=== PATIENT | male | born 1955 | race Asian ===

== ENCOUNTER 2020-03-21 19:10 | Observation (INO) ==
--- NOTE | 2020-03-21 20:44 | XRay Report ---
XR chest 1V portable HISTORY: Atypical Chest Pain COMPARISON: None. FINDINGS: The lungs are clear. Cardiac silhouette is normal in size. No pleural effusions. No pneumot horax. IMPRESSION: No acute process. ACT 112: Negative or not required by law. Electronically signed by: Hayden Marcum M.D. 03/21/2020 8:42 PM
[2020-03-21 20:53] LABS: Basophils # (auto) 0.02 K/uL (0-0.2); Basophils % (auto) 0.2 %; Eosinophils # (auto) 0.22 K/uL (0-0.5); Eosinophils % (auto) 2.7 %; Hematocrit (blood only) 43.1 % (42-52); Hemoglobin 14.7 g/dL (14.0-18.0); Immature Granulocytes # (auto) 0.02 K/uL (0.00-0.02); Immature Granulocytes % (auto) 0.2 %; Lymphocytes # (auto) 1.76 K/uL (1.2-3.4); Lymphocytes % (auto) 21.7 %; Mean Corpuscular Hemoglobin 32.2 pg (25-34); Mean Corpuscular Hgb Conc 34.1 g/dL (32-36); Mean Corpuscular Volume 94.5 fL (80-100); Mean Platelet Volume 10.7 fL (7.4-10.4); Monocytes # (auto) 0.51 K/uL (0.11-0.59); Monocytes % (auto) 6.3 %; Neutrophils # (auto) 5.59 K/uL (1.4-6.5); Neutrophils % (auto) 68.9 %; Platelet Count 183 K/uL (130-400); RDW Coefficient of Variation 12.7 % (11.5-14.5); RDW Standard Deviation 43.8 fL (36.4-46.3); Red Blood Count 4.56 M/uL (4.7-6.1); White Blood Count 8.12 K/uL (4.8-10.8)
[2020-03-21 21:03] LABS: Partial Thromboplastin Ratio 0.8; Partial Thromboplastin Time 21.7 Seconds (21.0-31.0); Prothrombin Time 10.9 Seconds (9.0-12.0)
--- NOTE | 2020-03-21 21:14 | Emergency Department Note ---
History of Present Illness General Chief complaint: Chest Pain Time Seen by Provider: 03/21/20 20:14 Source: patient, RN notes reviewed and old records reviewed Mode of arrival: ambulatory Limitations: language barrier History of Present Illness Provider complaint: Chest pain Onset (ago): hour(s) 2 Location: chest Radiation: back Severity: severe Pain Consistency: + now resolved Current Pain Intensity: 0 Quality: + stabbing Relieved By: + immobilization Exacerbated By: + movement Associated symptoms: + diaphoresis, + nausea/vomiting and + shortness of breath; no denies other symptoms, no cough, no fever/chills, no headaches, no seizure and no weakness Treatments prior to arrival: none This is a 64-year-old male who has a history of diabetes that presents the emergency department complaining of severe chest pain. The patient does not speak Belgian and I did offer citizenship teacher services however he would like to use his daughter as citizenship teacher. He reports he was out exercising today when he developed severe chest pain. The patient reports he usually walks slashes runs during the afternoon. The chest pain he described as a stabbing sensation that radiated into his back and neck. He became diaphoretic as well as short of br eath while this was going on. He stopped his exercise routine and eventually the chest pain went away. He was then brought to the emergency department by his daughter. The patient denies any other issues. 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 Beliefs That Will Affect Care: None marital status: Current Living Situation: Family Feels Safe at Home: Yes Smoking Status: Never smoker Tobacco Type: cigarettes ; Second Hand Exposure: Yes ; Hx Alcohol Use: Yes Alcohol type: beer Hx Substance Use: Yes substance use type: does not use Last Used Substance: Just Prior to Arrival Review of Systems A total of 10 systems reviewed and were otherwise negative Physical Exam Vital Signs Vital Signs - 24 hr 03/21/20 19:18 03/21/20 19:32 03/21/20 19:36 Temperature 36.7 C Temperature Source Oral Pulse Rate 51 L 52 L 52 L Pulse Rate from SpO2 Sensor 52 L Respiratory Rate 16 18 20 Blood Pressure 167/88 H 162/94 H 162/94 H Blood Pressure Mean 104 113 116 Pulse Oximetry 98 96 Oxygen Delivery Method Room Air Room Air Sepsis Recent Fever Within 48 Hours No Sepsis Action Taken by Nursing No Action Required 03/21/20 19:44 03/21/20 21:04 03/21/20 21:30 Temperature Temperature Source Pulse Rate 46 L 47 L Pulse Rate from SpO2 Sensor 45 L 48 L Respiratory Rate 17 16 Blood Pressure 157/91 H 143/95 H Blood Pressure Mean 129 112 Pulse Oximetry 98 99 Oxygen Delivery Method Room Air Room Air Room Air Sepsis Recent Fever Within 48 Hours Sepsis Action Taken by Nursing VITAL SIGNS - Vital signs and nursing notes were reviewed. GENERAL - 54-year-old male appearing stated age who is in no acute distress. Communicates well with provider and answers questions appropriately. SKIN - Without rashes. HEAD - NC/AT. EYES - PERRL with EOMI bilaterally. Sclera anicteric. Palpebral conjunctiva pink and moist with no injection noted. EARS - No deformities of external structures noted on gross examination bilaterally. No pain elicited with palpation of the tragus bilaterally. External auditory canals without discharge or otorrhea. Tympanic membranes pearly keith without retraction or bulging. No fluid or purulent material visualized behind the TM. Handle of malleus, umbo, cone of light, pars tensa/flaccid all easily visualized. NOSE - Midline and without cyanosis. No epistaxis or purulent drainage noted. Septum midline without deviation or septal hematoma noted. MOUTH/OROPHARYNX - Without perioral cyanosis. Buccal mucosa pink and moist and without leukoplakia. Tongue midline with equal elevation of palate bilaterally. No tonsillar hypertrophy, erythema, or exudates noted. dentition noted. NECK - Neck with FROM. Supple to palpation. lymphadenopathy noted. No nuchal rigidity. LUNGS - Chest wall symmetric without accessory muscle use, intercostals retractions, or central cyanosis. Normal vesicular breath sounds CTA B/L. No wheezes, rales, or rhonchi appreciated. CARDIAC - RRR with S1/S2. No murmur, rubs, or gallops appreciated. ABDOMEN - Abdominal contour without pulsations or visible masses. BS normoactive all four quadrants. No tenderness, palpable masses, hepatosplenomegaly, or ascites noted. EXTREMITIES - No clubbing or peripheral cyanosis. No pretibial edema present. +3/5 radial, posterior tibial, and dorsalis pedis pulses palpated throughout. +5/5 strength noted in UE/LE bilaterally. NEUROLOGIC - Cranial nerves II through XII grossly intact. Sensory intact to light touch throughout. Patellar reflexes +2/4. PSYCH - A&Ox3 and cooperates fully with examiner. Pt is very pleasant and interacts well with examiner. Course Administered Medications Discontinued Medications Aspirin (Aspirin Chew) 324 mg PO NOW STA Stop: 03/22/20 02:20 Last Admin: 03/22/20 02:24 Dose: 324 mg Documented by: [id number] Aspirin (Ecotrin Ectab) 81 mg PO QAM BLAYNE Stop: 04/21/20 08:59 Last Admin: 03/22/20 08:23 Dose: 81 mg Documented by: [id number] Chlorhexidine Gluconate (Peridex) 15 ml MT ONCE ONE Stop: 03/22/20 02:07 Last Admin: 03/22/20 02:43 Dose: 15 ml Documented by: [id number] Heparin Sodium (Porcine) (Heparin Sodium (Porcine)) 5,000 units SQ Q12 BLAYNE Stop: 04/21/20 08:59 Last Admin: 03/22/20 08:24 Dose: 5,000 units Documented by: [id number] Cosigned by: [id number] Nitroglycerin (Guido-Dur 0.2mg/Hr) 1 patch TD NOW STA Stop: 03/22/20 02:07 Last Admin: 03/22/20 02:41 Dose: 1 patch Documented by: [id number] Medical Decision Making Differential Diagnosis Cardiac ischemia, aortic dissection, pulmonary embolism, pneumothorax, pneumonia, pericarditis, myocarditis, esophageal rupture, GERD, cholecystitis, pancreatitis, musculoskeletal, as well as other pathologies. Medical Records Attestation: I reviewed the patient's medical records. Home Medications Current Medication List: was personally reviewed by me Laboratory Data Attestation: I reviewed the patient's lab results. Result diagrams: 03/21/20 20:40 03/22/20 09:33 Lab Results 06/03/21/20 03/21/20 Range/Units 20:40 20:40 20:40 WBC 8.12 (4.8-10.8) K/uL RBC 4.56 L (4.7-6.1) M/uL Hgb 14.7 (14.0-18.0) g/dL Hct 43.1 (42-52) % MCV 94.5 (80-100) fL MCH 32.2 (25-34) pg MCHC 34.1 (32-36) g/dL RDW Std Deviation 43.8 (36.4-46.3) fL RDW Coeff of Casie 12.7 (11.5-14.5) % Plt Count 183 (130-400) K/uL MPV 10.7 H (7.4-10.4) fL Immature Gran % (Auto) 0.2 % Neut % (Auto) 68.9 % Lymph % (Auto) 21.7 % Frontier % (Auto) 6.3 % Eos % (Auto) 2.7 % Baso % (Auto) 0.2 % Neut # (Auto) 5.59 (1.4-6.5) K/uL Lymph # (Auto) 1.76 (1.2-3.4) K/uL Frontier # (Auto) 0.51 (0.11-0.59) K/uL Eos # (Auto) 0.22 (0-0.5) K/uL Baso # (Auto) 0.02 (0-0.2) K/uL Immature Gran # (Auto) 0.02 (0.00-0.02) K/uL PT 10.9 (9.0-12.0) Seconds INR 1.0 (0.9-1.1) APTT 21.7 (21.0-31.0) Seconds PTT Ratio 0.8 Sodium 138 (136-145) mmol/L Potassium 4.2 (3.5-5.1) mmol/L Chloride 107 (98-107) mmol/L Carbon Dioxide 26 (21-32) mmol/L Anion Gap 5.0 (3-11) BUN 14 (7-18) mg/dl Creatinine 1.01 (0.6-1.4) mg/dl Est Cr Clr Drug Dosing Not Reportable Est GFR ( Amer) 92.0 Est GFR (Non-Af Amer) 79.3 BUN/Creatinine Ratio 14.3 (10-20) Glucose 123 H (70-99) mg/dl Calcium 8.9 (8.5-10.1) mg/dl Total Bilirubin 0.5 (0.2-1) mg/dl AST 11 L (15-37) U/L ALT 28 (12-78) U/L Alkaline Phosphatase 85 (45-117) U/L Total Creatine Kinase 60 (39-308) U/L CK-MB (CK-2) < 1.0 (0.5-3.6) ng/ml CK/CKMB % Calc TNP Troponin I < 0.015 (0-0.045) ng/ml Total Protein 7.8 (6.4-8.2) gm/dl Albumin 3.9 (3.4-5.0) gm/dl Globulin 3.9 (2.5-4.0) gm/dl Albumin/Globulin Ratio 1.0 (0.9-2) Imaging Data Radiologist's Impression: [facility], [place] [phone] XRay Report Patient: RAYA BEST Admit Date: 03/21/20 MR#: [id number] Address1: Acct ID:[id number] Address2: Date: 1955 [facility] Zip: Age: 64 Location: ED Sex: M Room/Bed: Att Phy: Diagnosis: CHEST PAINS Tracy Phy: PCP,NO Service Date: 03/21/20 [facility] Phy: Interpreting Phy: Hayden Marcum MD Admit Phy: Ordering Phy: Bhaskar Moss MD cc: ~ XR chest 1V portable HISTORY: Atypical Chest Pain COMPARISON: None. FINDINGS: The lungs are clear. Cardiac silhouette is normal in size. No pleural effusions. No pneumothorax. IMPRESSION: No acute process. ACT 112: Negative or not required by law. Electronically signed by: Hayden Marcum M.D. 03/21/2020 8:42 PM Dictated: 03/21/202040 Transcribed: 03/21/202040 ECG Data Attestation: I personally reviewed and interpreted this ECG as follows: Indication: chest pain Rate (beats per minute): 54 Rhythm: sinus bradycardia Findings: no ST depression and no ST elevation Comparison ECG Date: no prior available MDM Narrative This is a 64-year-old male who presents emergency department complaining of severe chest pain while he was exercising today. Due to this I did discuss case with the hospitalist service. He does not have an elevation in his troponin has a normal EKG. I did discuss the case with the hospitalist service who did agree to admit the patient. Patient was seen and evaluated as above in room B10. Review was performed of nursing notes and vital signs. I did review pertinent previous visits and patient history. After obtaining a thorough history and physical examination the above work up was performed. B6 An order was placed for continuous cardiac monitoring. The monitor shows a rate of 47 with Normal Sinus rhythm. The patient was evaluated during the global COVID-19 pandemic, and that diagnosis was suspected/considered upon their initial presentation. Their evaluation, treatment and testing was consistent with current guidelines for patients who present with complaints or symptoms that may be related to COVID- 19. Impression & Plan Chest pain, DMII (diabetes mellitus, type 2) Discharge Plan Visit Data *Final* Discharge Date/Time: 03/22/20 00:04 Chief Complaint: Chest Pain ED Provider: Bhaskar Moss Discharge Problem: Chest pain, DMII (diabetes mellitus, type 2) Patient Disposition: Admitted As Inpatient Discharge Instructions Interventions: ED Discharge Assessment Last Done: 03/22/20 00:04 Discharge Problem: Chest pain Qualifiers: Chest pain type: unspecified Qualified Code(s): R07.9 - Chest pain, unspecified DMII (diabetes mellitus, type 2) Qualifiers: Diabetes mellitus custodial insulin use: unspecified custodial insulin use status Diabetes mellitus complication status: without complication Qualified Code(s): E11.9 - Type 2 diabetes mellitus without complications
[2020-03-21 21:20] LABS: Alanine Aminotransferase 28 U/L (12-78); Albumin Level 3.9 gm/dl (3.4-5.0); Aspartate Aminotransferase 11 U/L (15-37); BUN Creatinine Ratio 14.3 (10-20); Blood Urea Nitrogen 14 mg/dl (7-18); Calcium 8.9 mg/dl (8.5-10.1); Carbon Dioxide 26 mmol/L (21-32); Chloride 107 mmol/L (98-107); Est GFR (Non-African American) 79.3; Glucose 123 mg/dl (70-99); Potassium 4.2 mmol/L (3.5-5.1); Sodium 138 mmol/L (136-145)
[2020-03-21 21:25] LABS: Alkaline Phosphatase 85 U/L (45-117); Bilirubin,Total 0.5 mg/dl (0.2-1); Creatine Kinase 60 U/L (39-308); Creatine Kinase MB < 1.0 ng/ml (0.5-3.6); Globulin 3.9 gm/dl (2.5-4.0); Total Protein 7.8 gm/dl (6.4-8.2); Troponin I < 0.015 ng/ml (0-0.045)
--- NOTE | 2020-03-22 00:37 | History & Physical Report ---
Date of Service March 22, 2020 Assessment & Plan Admission and Anticipated Discharge Date Admission Date: 64 yo m pMHx. of diabetes presents with new onset exertional chest pain that resolved at rest, ruling out cardiac ischemia. Heart score 3 low risk (.9-1%), the pain could represent GI source, MSK possible although less likely given lack of trauma and NTTP, myopericarditis possible although no clear signs on EKG and no clear preceding viral infection. Continue to evaluate ischemic causes of chest pain, of note patient has diagonal ear creases (Sang's sign) that puts him at increased risk of CAD. - EKG: sinus bradycardia w/o ST elevation or depression - CXR: no acute process - Negative troponin, continue to trend - ASA 325 given now, 81 mg ordered QAM - Morphine ordered PRN for pain - Nitro paste ordered - consider a stress test inpatient vs. outpatient - consulted case management to help schedule follow up - ordered AM lipid profile to address risk factors Diabetes - AM A1c ordered - held oral agents while in the hospital - f/u am bmp Broken tooth - ordered Peridex mouth wash DVT: heparin Diet: carb consistent Dispo: med/surg tele History of Present Illness Chief Complaint: chest pain Primary Care Provider: NO PCP Alexandra Rose is a 64-year-old italian speaking (video interpretation used) gentleman who is coming in for chest pain that he developed while he was walking at 6PM today. The pain resolved with rest. The pain was across his chest w/o associated nausea or vomiting, or radiation to his arm or jaw. He has never had pain like this in the past. He had cookies and salt water prior to going on the walk. He did not have a history of indigestion. He has not had any recent injury of fall. He is from [place] and has been here for several months, he was initially visiting his daughter Jeff Rose (Sydni) who is a PHd student here at [employer] [facility], he was unable to return to [place] due to COVID. He currently has travel insurance but daughter was concerned with the costs involved with the hospital stay. He has no known cardiac disease but had seen a hand shaker in [place] in March of 2019 it is unclear if he has had any specific cardiac workup but it does not sound like he has had a stress test. He was told that he has sinus bradycardia. He explained that he does have elevated blood sugar and takes Metformin at home. He is feeling fatigued and explained that he thinks he has a cold coming on. He also has a toothache that he has had for the last couple days. He has back pain that has been ongoing for several years, he describes this as upper and related to muscles and tendons. Surgical Hx. appendectomy in 1981, fistula repair 2017 Social Hx. - No tobacco use - Previously would drink 1/2 jin (which is a unit of measure 250ml) of a italian spirit, explains he currently drinks a, "normal amount" - walks 2-3 km 4-5 x week Allergies Allergy/AdvReac Type Severity Reaction Status Date / Time No Known Allergies Allergy Unverified 03/21/20 22:09 Home Medications Home Medications Medication Instructions Recorded Confirmed Type ibuprofen [Advil] 200 mg PO HS PRN 03/21/20 03/21/20 History multivit with min-folic acid 0 mcg PO DAILY 03/21/20 03/21/20 History [Adult Multivitamin Gummies] Past Med/Surg History Social History Preferred Language: Lao Communication Ability: Effective Communication Tools: IPad Administrative Nursing Supervisor Required: Yes Beliefs That Will Affect Care: None Current Living Situation: Family Other Information That Helps Us Care for You: No Feels Safe at Home: Yes Safety Concerns: Feels Safe At This Time Smoking Status: Never smoker Tobacco Type: cigarettes ; Do You Dip or Chew Tobacco: Yes ; Second Hand Exposure: Yes ; Tobacco Cessation Education Requested by Patient: Yes Hx Alcohol Use: Yes Alcohol type: beer Hx Substance Use: Yes substance use type: does not use Last Used Substance: Just Prior to Arrival Review of Systems Review of Systems: Constitutional: denies fevers, chills, night sweats, weight change not related to diet or exercise admits fatigue Head: denies trauma or LOC Neurologic: denies syncope or presyncope ENT: denies stuffiness, sneezing, sore throat Cardiac: denies palpitations, leg edema, SWANN Pulm: admits cough GI: denies indigestion, constipation, diarrhea : denies dysuria Physical Exam Constitutional: WD/WN, vitals as above Eyes: PERRL, conjunctivae normal, anicteric sclerae ENMT: - diagonal ear crease - broken tooth bottom left side Neck: normal visual inspection Respiratory: normal respiratory effort, lungs clear to auscultation Cardiovascular: RRR, no murmur, no edema Vessels: no JVD and no carotid bruit Chest (Breasts): Additional Comments: - non tender to palpation Gastrointestinal (Abdomen): normal bowel sounds, soft, nontender, no hepatosplenomegaly Musculoskeletal: Head/Neck/Chest: normocephalic and head atraumatic Skin: no rashes, warm and dry Results & Data Results & Data ([facility] Vital Signs (Past 12 Hours) Vital Signs Temp Pulse Resp BP Pulse Ox 03/21/20 23:58 53 L 153/88 H 96 03/21/20 21:30 47 L 16 143/95 H 99 03/21/20 21:04 46 L 17 157/91 H 98 03/21/20 19:36 36.7 C 52 L 20 162/94 H 96 03/21/20 19:32 52 L 18 162/94 H 98 03/21/20 19:18 51 L 16 167/88 H CBC Results Results Complete Blood Count Results: RBC 4.56 M/uL (4.7-6.1) L 03/21/20 WBC 8.12 K/uL (4.8-10.8) 03/21/20 Hgb 14.7 g/dL (14.0-18.0) 03/21/20 Hct 43.1 % (42-52) 03/21/20 Plt Count 183 K/uL (130-400) 03/21/20 Chemistry (BMP) Results BMP Results: Sodium 138 mmol/L (136-145) 03/21/20 Potassium 4.2 mmol/L (3.5-5.1) 03/21/20 Chloride 107 mmol/L (98-107) 03/21/20 BUN 14 mg/dl (7-18) 03/21/20 Creatinine 1.01 mg/dl (0.6-1.4) 03/21/20 Glucose 123 mg/dl (70-99) H 03/21/20 Code Status & VTE Plan VTE Prophylaxis Plan VTE Prophylaxis will be ordered: Yes Supervising Physician Co-Signing Physician Notes Patient seen and examined, chart reviewed, case discussed with Dr. Otto and I agree with his assessment and plan as documented above. Briefly, patient is a 64yo [place] male presenting with exertional chest discomfort relieved by rest. Concern for ACS. On exam he is afebrile, sinus bradycardia otherwise HD stable, NAD, resting comfortably SKin - no rash HEENT - NC/AT, PERRL, EOMI, MMM, neck supple, +broken tooth left maxillary and mandibular molars Heart - +S1/S2, regular, bracycardic, no m/r/g Lungs - CTA Abd - +BS, soft, NT/ND Ext - warm, no edema Labs and images reviewed, Troponin x 1 negative, no EKG changes consistent with acute ischemia or ACS Assessment/Plan: 64yo [place] male with exertional chest pain. Patient is low risk by Heart score - troponin and EKG unremarkable -Observation to medical with telemetry -Trend troponin -Patient may benefit from outpatient stress testing -Remainder of plan as above Resident Activity Tracking Resident Involvement: Resident Care Provided Care Provided: Adult Hospital Medicine
[2020-03-22] MEDS ORDERED: ALUMINUM/MAGNESIUM SUSP 30 ML UDC PO PRN (02:06)
[2020-03-22] MEDS ORDERED: NITROGLYCERIN 0.2 MG/HR PATCH TD STA (02:06)
[2020-03-22] MEDS ORDERED: CHLORHEXIDINE GLUCONATE 0.12% 480 ML MT ONE (02:06)
[2020-03-22] MEDS ORDERED: MAGNESIUM HYDROXIDE SUSP 30 ML UDC PO PRN (02:06)
[2020-03-22] MEDS ORDERED: POLYETHYLENE (MIRALAX) 17 GM PACK PO PRN (02:06)
[2020-03-22] MEDS ORDERED: ONDANSETRON INJ 2 MG/ML 2 ML VIAL IV PRN (02:06)
[2020-03-22] MEDS ORDERED: MoRPHine SULFATE 2 MG/ML CARP IV PRN (02:06)
[2020-03-22] MEDS ORDERED: ACETAMINOPHEN 325 MG TAB PO PRN (02:06)
[2020-03-22] MEDS ORDERED: ASPIRIN 81 MG CHEW PO STA (02:19)
[2020-03-22 03:39] LABS: Chol HDL Ratio 4; Cholesterol 153 mg/dl (0-200); HDL Cholesterol 43 mg/dl; LDL Cholesterol Calculated 78 mg/dl; Triglycerides 158 mg/dl (0-150); VLDL Cholesterol 32 mg/dl
--- NOTE | 2020-03-22 04:59 | Billing Data ---
Date of Service March 22, 2020 Coding Level of Care Code 89208 Office/OBS Consult Lvl 2
[2020-03-22 07:34] LABS: Estimated Average Glucose 137 mg/dl; Hemoglobin A1C 6.4 % (4.5-5.6)
[2020-03-22] MEDS ORDERED: HEPARIN SOD 5,000 UNIT/0.5 ML VIAL SQ SCH (09:00)
[2020-03-22] MEDS ORDERED: ASPIRIN 81 MG ECTAB PO SCH (09:00)
[2020-03-22 10:05] LABS: Blood Urea Nitrogen 14 mg/dl (7-18); Calcium 8.7 mg/dl (8.5-10.1); Carbon Dioxide 26 mmol/L (21-32); Chloride 108 mmol/L (98-107); Est GFR (African American) 89.8; Est GFR (Non-African American) 77.5; Glucose 143 mg/dl (70-99); Potassium 3.8 mmol/L (3.5-5.1); Sodium 140 mmol/L (136-145)
--- NOTE | 2020-03-22 10:47 | Electrocardiogram Report ---
Test Reason : Blood Pressure : / mmHG Vent. Rate : 054 BPM Atrial Rate : 054 BPM P-R Int : 178 ms QRS Dur : 112 ms QT Int : 454 ms P-R-T Axes : 060 -14 011 degrees QTc Int : 430 ms Sinus bradycardia Otherwise normal ECG No previous ECGs available Confirmed by Josue Serrato [id number]) on 03/22/2020 10:47:02 AM Referred By: REFERRED SELF Confirmed By:Willy Serrato
--- NOTE | 2020-03-22 12:53 | Discharge Summary ---
Date of Service March 22, 2020 Admission HPI Per Admitting Provider Alexandra Rose is a 64-year-old iranian speaking (video interpretation used) gentleman who is coming in for chest pain that he developed while he was walking at 6PM today. The pain resolved with rest. The pain was across his chest w/o associated nausea or vomiting, or radiation to his arm or jaw. He has never had pain like this in the past. He had cookies and salt water prior to going on the walk. He did not have a history of indigestion. He has not had any recent injury of fall. He is from [place] and has been here for several months, he was initially visiting his daughter Jeff Rose (Sdyni) who is a PHd student here at [facility], he was unable to return to [place] due to COVID. He currently has travel insurance but daughter was concerned with the costs involved with the hospital stay. He has no known cardiac disease but had seen a chicken stuffer in [place] in March of 2019 it is unclear if he has had any specific cardiac workup but it does not sound like he has had a stress test. He was told that he has sinus bradycardia. He explained that he does have elevated blood sugar and takes Metformin at home. He is feeling fatigued and explained that he thinks he has a cold coming on. He also has a toothache that he has had for the last couple days. He has back pain that has been ongoing for several years, he describes this as upper and related to muscles and tendons. Surgical Hx. appendectomy in 1981, fistula repair 2016 Social Hx. - No tobacco use - Previously would drink 1/2 jin (which is a unit of measure 250ml) of a iranian spirit, explains he currently drinks a, "normal amount" - walks 2-3 km 4-5 x week Principal Diagnosis chest pain Discharge Exam Constitutional WD/WN, vitals as above Respiratory normal respiratory effort, lungs clear to auscultation Cardiovascular RRR, no murmur, no edema Gastrointestinal (Abdomen) Inspection/Auscultation: abdomen normal to inspection and normal bowel sounds; abdomen not distended Percussion/Palpation: abdomen soft; abdomen nontender Musculoskeletal no cyanosis or clubbing, extremities motor strength 5/5 Skin no rashes, warm and dry Neurologic moves all extremities and awake Psychiatric A+Ox3, euthymic affect Discharge Data Allergies Allergy/AdvReac Type Severity Reaction Status Date / Time No Known Allergies Allergy Unverified 03/21/20 22:09 Consultations 03/21/20 21:58 ED Decision to Admit Stat 03/22/20 02:06 Consult Case Management - Discharge Planning Stat 03/22/20 12:39 Consult [facility] 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 of diabetes presents with new onset exertional chest pain that resolved at rest. Heart score 3 low risk (.9-1%), the pain could represent GI source, MSK possible although less likely given lack of trauma and NTTP, myopericarditis possible although no clear signs on EKG and no clear preceding viral infection although he did complain of a mild sore throat but no other symptoms. - EKG: sinus bradycardia w/o ST elevation or depression, repeated and the same, no events on monitor - CXR: no acute process - Negative troponin x3 - ordered AM lipid profile to address risk factors, see below Patient ambulated halls with no difficulty, no chest pain since admission. Discussed with patient and his daughter that patient's risk is low for a cardiac event in the next 30 days but not zero. They felt comfortable with him going home and following up with cardiology outpatient for possible stress test. They should return to the hospital with any chest pain. Also discussed that he could trial a ppi for a month to see if problem might be GI related. Consulted nurse navigator to set patient up with cardiology this week. (2) DMII (diabetes mellitus, type 2): Well controlled, A1c 6.4 (3) Broken tooth: Recommended he follow up with dentist, which he has been waiting to do but was pushed back due to COVID Also given warning signs for infection and when to call dentist for urgent visit. WBCs normal, afebrile (4) Hypertriglyceridemia: Slightly elevated triglycerides at 158 Counseled on lifestyle interventions Total Time Total Time Spent Total Time Spent (In Minutes): greater than 30 minutes Discharge Plan Discharge Items Patient Disposition: Home - Self-Care Reason For Visit: CHEST PAIN Discharge Diagnosis: Chest pain Activity: Resume your previous activity Non-emergency contact: Primary Care Provider Call non-emergency contact if: you have any medication questions Follow-up/Referrals: PCP,NO [Primary Care Provider] - Diet: Carb Consistent or DM2 Addtl Attending Provider Instructions: Chest pain: You did not have any evidence of ischemia (lack of oxygen) to your heart on your EKG or any evidence of injury to the heart based on your blood work (troponin). Because of this and your lower risk (non smoker, no history of heart issues, no strong family history of heart issues) your risk for coronary event over the next month is low. You will need to follow up with [facility] this week, they may want to perform a stress test. Our nurse navigator will call you with an appointment. If you do not hear from anyone about an appointment by Tuesday, please call the cardiology office to make one. You trial a proton pump inhibitor like omeprazole for a month to see if that keeps the pain from returning. Sometimes chest pain that is non cardiac can be from reflux of gastric contents to the esophagus Please return to the emergency department if your chest pain returns. Elevated triglycerides Your triglycerides were 158. This is just slightly above normal. Continue exercise and cut down on simple carbohydrates such as white rice, white breads, and sweets. Diabetes - A1c (measure of your average blood sugar over 3 months) was 6.4 which indicates good control of your diabetes. Broken tooth - please follow up with your dentist. If you are having increasing pain, swelling, drainage or start running a fever this could indicate infection and you should be seen right away. Pending Studies at Discharge: No Stand-Alone Forms: [facility], Smoking Cessation Medications and DC Order Prescriptions: Continued ibuprofen [Advil] 200 mg Tablet 200 mg PO HS PRN (Reason: Sleep) RF: 0 Adult Multivitamin Gummies 200 mcg Tablet,Chewable 0 mcg PO DAILY RF: 0 Discharge Orders: Discharge Order (Routine); Ordered 03/22/20 Ordered By: Minna Maya Admission Data Admit Date/Time: 03/21/20 23:30 Attending Provider: Valente Kyle Admit Provider: Jose Rafael Otto Primary Care Provider: PCP,NO Other Providers: Valente Kyle. Other Interventions: Discharge Summary Assessment (RN) Last Done: 03/22/20 12:59 DC Date/Time DO NOT enter until pt leaves facility: 03/22/20 13:50 Coding Level of Care Code D/C Day Management >30 mins Diagnoses Chest pain R07.9 DMII (diabetes mellitus, type 2) E11.9 Broken tooth S02.5XXA Hypertriglyceridemia E78.1
--- NOTE | 2020-03-22 15:27 | Electrocardiogram Report ---
Test Reason : Blood Pressure : / mmHG Vent. Rate : 048 BPM Atrial Rate : 048 BPM P-R Int : 172 ms QRS Dur : 100 ms QT Int : 464 ms P-R-T Axes : 062 -07 020 degrees QTc Int : 414 ms Sinus bradycardia Otherwise normal ECG When compared with ECG of 21-MAR-2020 19:15, No significant change was found Confirmed by Josue Serrato ([id number]) on 03/22/2020 3:27:28 PM Referred By: REFERRED SELF Confirmed By:Willy Serrato
== END 2020-03-22 13:50 | disposition home or self-care (01) ==
LOC: ED 19:10 → 2W 19:10 → SUATTDRO 23:30 → 2W 03-22 00:04

== ENCOUNTER 2020-03-25 16:48 | Inpatient (IN) ==
--- NOTE | 2020-03-25 17:18 | Emergency Department Note ---
Impression & Plan Chest pain, Positive cardiac stress test, Non-ST elevation OR (NSTEMI) ED Provider Note NAME: RAYA BEST AGE: 64 SEX: M : 1955 ARRIVES VIA: Walk-In INFORMANT: Patient ED PROVIDER(S): Daniel Carter DO CHIEF COMPLAINT: Chest Pain HPI: Patient is a 64-year-old male who presents the ER for exertional chest pain. Patient was seen here on 03/21 and admitted and discharged after 3 negative troponins and no EKG changes. He presented to the cardiology's office. He had a stress test where he had chest pain and failed the test. They sent him over here to be admitted. He is currently chest pain-free. He was given nitro glycerin and had resolution of the chest pain over in the office. He already took aspirin this morning. He has had several bouts of chest pain since being discharged. Daughter relates that most of these were with exertion. They resolve with rest. Does have a history of diabetes which is fairly well controlled. His triglycerides were slightly abnormal on last admission. He is currently chest pain-free. No other exacerbating or remitting factors. History is obtained from the daughter who interprets. ROS: See above HPI for pertinent positives & negatives. A total of 10 systems reviewed and were otherwise negative. PAST MEDICAL HISTORY:See Below PAST SURGICAL HISTORY:See Below FAMILY HISTORY:See Below SOCIAL HISTORY:See Below HOME MEDICATIONS:See Below ALLERGIES:See Below VITALS:See Below PHYSICAL EXAMINATION: GENERAL: Sitting up in bed, alert, well appearing, well nourished, no distress, non-toxic EYE EXAM: normal conjunctiva. OROPHARYNX: no exudate, no erythema, lips, buccal mucosa, and tongue normal and mucous membranes are moist NECK: supple, no nuchal rigidity, no adenopathy, non-tender LUNGS: Clear to auscultation. Normal chest wall mechanics HEART: no murmurs, S1 normal and S2 normal ABDOMEN: abdomen soft, non-tender, normo-active bowel sounds, no masses, no rebound or guarding. BACK: Back is symmetrical on inspection and there is no deformity, no midline tenderness, no CVA tenderness. SKIN: no rashes and no bruising UPPER EXTREMITIES: upper extremities are grossly normal. LOWER EXTREMITIES: No pitting edema. NEURO EXAM: Normal sensorium, cranial nerves II-XII grossly intact, no gross weakness of arms, no gross weakness of legs. MEDICAL DECISION MAKING: Patient is a 64-year-old male who was referred over from cardiology's office following failing a stress test. He was recently admitted and discharged on 03/21 the hospital for chest pain. IV was established blood work was obtained. Labs show no significant leukocytosis or anemia. INR was unremarkable. BMP with a slightly elevated chloride. Troponin was detectable at 0.092. Lipase was normal. Upon patient's arrival I did discuss with the hospitalist for admission. This was prior to the result of the blood work. Did rediscuss with Dr. Quintana following the result of the troponin. Orders were placed for heparin and nitro as he had already discussed the case with cardiology. Patient remained chest pain-free while in the ER. Triage Nursing notes reviewed. Prior medical records reviewed Vital Signs: reviewed and remarkable for no significant abnormalities Differential diagnosis: Differential diagnoses includes but is not limited to acute coronary syndrome, myocardial infarction, pericarditis, pulmonary embolus, aortic dissection, pneumonia, pneumothorax, musculoskeletal, shingles, esophageal. ER treatment provided: See below Diagnostics interpreted by me: ECG: Sinus bradycardia rate of 49 Normal axis No PVCs Normal QTC Cardiac Monitoring: An order was placed for continuous cardiac monitoring. The monitor shows a rate of 51 with sinus rhythm. Laboratory studies: As stated above and show below. Imaging studies: Portable AP upright 1 view of the chest shows no focal infiltrate or pneumothorax. Consultation(s): Discussed with Dr. Ruiz ED COURSE: Procedures: none Critical Care: None Past Med/Surg History Social History Preferred Language: Mandarin Chadian Communication Ability: Language Communication Tools: IPad and Other Supervisor Cigar Making Machine Required: Yes Beliefs That Will Affect Care: None marital status: Current Living Situation: Family Feels Safe at Home: Yes Smoking Status: Former smoker Tobacco Type: cigarettes ; Second Hand Exposure: Yes ; Hx Alcohol Use: No Hx Substance Use: No Allergies Allergies Allergy/AdvReac Type Severity Reaction Status Date / Time No Known Allergies Allergy Verified 03/25/20 18:20 Home Meds Home Medications Medication Instructions Recorded Confirmed Adult Multivitamin Gummies 200 mcg PO DAILY 03/21/20 03/25/20 ibuprofen [Advil] 200 mg PO HS PRN 03/21/20 03/25/20 aspirin 325 mg PO ONCE 03/25/20 03/25/20 Results & Data (ED) Vital Signs Vital Signs - 24 hr 03/25/20 16:55 03/25/20 17:36 Temperature 37.4 C Temperature Source Oral Pulse Rate 56 L Respiratory Rate 18 Blood Pressure 140/82 Blood Pressure Mean 101 Pulse Oximetry 98 Oxygen Delivery Method Room Air Room Air Sepsis Recent Fever Within 48 Hours No Sepsis New/Unexplained Change in Mental Status No Sepsis Action Taken by Nursing No Action Required Laboratory Data Result diagrams: 03/25/20 17:31 03/25/20 17:31 Lab Results 03/25/20 03/25/20 03/25/20 Range/Units 17:31 17:31 17:31 WBC 10.23 (4.8-10.8) K/uL RBC 4.64 L (4.7-6.1) M/uL Hgb 14.7 (14.0-18.0) g/dL Hct 43.8 (42-52) % MCV 94.4 (80-100) fL MCH 31.7 (25-34) pg MCHC 33.6 (32-36) g/dL RDW Std Deviation 44.8 (36.4-46.3) fL RDW Coeff of Casie 13.1 (11.5-14.5) % Plt Count 210 (130-400) K/uL MPV 11.2 H (7.4-10.4) fL Immature Gran % (Auto) 0.2 % Neut % (Auto) 74.4 % Lymph % (Auto) 18.3 % [place] % (Auto) 5.5 % Eos % (Auto) 1.5 % Baso % (Auto) 0.1 % Neut # (Auto) 7.62 H (1.4-6.5) K/uL Lymph # (Auto) 1.87 (1.2-3.4) K/uL [place] # (Auto) 0.56 (0.11-0.59) K/uL Eos # (Auto) 0.15 (0-0.5) K/uL Baso # (Auto) 0.01 (0-0.2) K/uL Immature Gran # (Auto) 0.02 (0.00-0.02) K/uL PT 11.0 (9.0-12.0) Seconds INR 1.0 (0.9-1.1) APTT 20.2 L (21.0-31.0) Seconds PTT Ratio 0.7 Sodium 139 (136-145) mmol/L Potassium 4.1 (3.5-5.1) mmol/L Chloride 109 H (98-107) mmol/L Carbon Dioxide 25 (21-32) mmol/L Anion Gap 6.0 (3-11) BUN 17 (7-18) mg/dl Creatinine 0.92 (0.6-1.4) mg/dl Est Cr Clr Drug Dosing 86.2 ml/min Est GFR ( Amer) 102.9 Est GFR (Non-Af Amer) 88.8 BUN/Creatinine Ratio 18.5 (10-20) Glucose 99 (70-99) mg/dl Calcium 9.3 (8.5-10.1) mg/dl Total Bilirubin 0.6 (0.2-1) mg/dl AST 20 (15-37) U/L ALT 28 (12-78) U/L Alkaline Phosphatase 83 (45-117) U/L Troponin I 0.092 H* (0-0.045) ng/ml Total Protein 8.2 (6.4-8.2) gm/dl Albumin 3.9 (3.4-5.0) gm/dl Globulin 4.3 H (2.5-4.0) gm/dl Albumin/Globulin Ratio 0.9 (0.9-2) Lipase 153 (73-393) U/L Specimen Hemolysis Administered Medications Sodium Chloride (Nss 1000ml) 1,000 mls @ 85 mls/hr IV .[id number] [facility] Stop: 03/26/20 07:51 Last Admin: 03/25/20 20:52 Dose: 85 mls/hr Documented by: [id number] Heparin Sodium/Dextrose (Heparin Sodium/Dextrose) 25,000 units in 500 mls @ 28 mls/hr IV .[id number] [facility]; Protocol Stop: 04/24/20 20:05 Last Admin: 03/25/20 20:53 Dose: 1,400 units/hr, 28 mls/hr Documented by: [id number] Cosigned by: [id number] Insulin Aspart (Novolog Flexpen) 0 units [facility] Stop: 04/24/20 20:59 Last Admin: 03/25/20 20:52 Dose: Not Given Documented by: [id number] Cosigned by: [id number] Nitroglycerin (Nitro-Bid 2%) 0.5 inch EXT Q6H [facility] Stop: 04/24/20 20:59 Last Admin: 03/25/20 20:53 Dose: 0.5 inch Documented by: [id number] Discontinued Medications Heparin Sodium (Porcine) 6,000 (units/ Syringe) 6 mls @ 10 mls/min IV NOW ONE Stop: 03/25/20 21:01 Last Admin: 03/25/20 20:57 Dose: 10 mls/min Documented by: [id number] Cosigned by: [id number] Discharge Plan Visit Data *Final* Discharge Date/Time: 03/25/20 19:25 Chief Complaint: Referred by Doctor Stated Complaint: CHEST PAIN DURING PROCEDURE ED Provider: Daniel Carter Discharge Problem: Chest pain, Positive cardiac stress test, Non-ST elevation OR (NSTEMI) Patient Disposition: Admitted As Inpatient Discharge Instructions Interventions: ED Discharge Assessment Last Done: 03/25/20 19:25 Discharge Problem: Chest pain Qualifiers: Chest pain type: unspecified Qualified Code(s): R07.9 - Chest pain, unspecified
[2020-03-25 17:43] LABS: Basophils # (auto) 0.01 K/uL (0-0.2); Basophils % (auto) 0.1 %; Eosinophils # (auto) 0.15 K/uL (0-0.5); Eosinophils % (auto) 1.5 %; Hematocrit (blood only) 43.8 % (42-52); Hemoglobin 14.7 g/dL (14.0-18.0); Immature Granulocytes # (auto) 0.02 K/uL (0.00-0.02); Immature Granulocytes % (auto) 0.2 %; Lymphocytes # (auto) 1.87 K/uL (1.2-3.4); Lymphocytes % (auto) 18.3 %; Mean Corpuscular Hemoglobin 31.7 pg (25-34); Mean Corpuscular Hgb Conc 33.6 g/dL (32-36); Mean Corpuscular Volume 94.4 fL (80-100); Mean Platelet Volume 11.2 fL (7.4-10.4); Monocytes # (auto) 0.56 K/uL (0.11-0.59); Monocytes % (auto) 5.5 %; Neutrophils # (auto) 7.62 K/uL (1.4-6.5); Neutrophils % (auto) 74.4 %; Platelet Count 210 K/uL (130-400); RDW Coefficient of Variation 13.1 % (11.5-14.5); RDW Standard Deviation 44.8 fL (36.4-46.3); Red Blood Count 4.64 M/uL (4.7-6.1); White Blood Count 10.23 K/uL (4.8-10.8)
[2020-03-25 17:57] LABS: Partial Thromboplastin Ratio 0.7; Partial Thromboplastin Time 20.2 Seconds (21.0-31.0)
--- NOTE | 2020-03-25 18:00 | History & Physical Report ---
Date of Service March 25, 2020 Assessment & Plan (1) Positive cardiac stress test: Patient is here for unstable angina he will be given heparin drip oxygen therapy aspirin he will be kept overnight kept n.p.o. after midnight and possible stress test in the morning. Patient has no history of tobacco use according to his family through stretcher leveler operator helper of his daughter no evidence of family history of heart disease. Per Dr. Baron's outpatient records recommending Nitropaste Dr. cali a summary of the stresses visit on 03/25/2020 stress versus early positive stress test change. ST segment changes diagnostic of myocardial ischemia. Post exercise echo images with evidence of ischemia in the mid LAD distribution. Normal resting left ventricular systolic function. Test was positive at a low heart rate. Maximal heart rate was 82 bpm. 52% of the maximum effective heart rate. ST segment changes developed within [address] segment changes persisted but improved until least elements in recovery phase. Relief of exercise-induced chest discomfort with 4 sublingual nitroglycerin sprays. Hemodynamically stable. No arrhythmia. No signs and symptoms of heart failure or arrhythmia. Only obvious risk for CAD factors is type 2 diabetes. LDL is 78. Never smoked cigarettes. (2) DMII (diabetes mellitus, type 2): Patient has diabetes listed as his problem list there is no medications on this patient's med reconciliation he will be on a carbohydrate conservative diet kept n.p.o. after midnight if his glucoses are over 150 sliding-scale insulin will be used History of Present Illness Primary Care Provider: NO PCP 64-year-old male who was recently discharged from our facility March 22 after a period of chest pain he ruled out for GA was sent for outpatient stress test which he attempted to complete today, 03/25/2020. Patient developed chest pain during the testing and there was some concern for unstable angina he was sent to the ER for admission for possible left heart catheterization in the morning of 03/26/2020. I did speak personally to Dr. Castrejon spotter who recommends heparin drip overnight aspirin therapy and oxygen. The patient is not recommended to be loaded with Plavix at this time. At the time of this dictation the patient's without any chest discomfort resting comfortably with stable vital signs CBC is normal he is pending chemistries and a troponin test at this time. Allergies Allergy/AdvReac Type Severity Reaction Status Date / Time No Known Allergies Allergy Unverified 03/21/20 22:09 Home Medications Home Medications Medication Instructions Recorded Confirmed Type Adult Multivitamin Gummies 0 mcg PO DAILY 03/21/20 03/21/20 History ibuprofen [Advil] 200 mg PO HS PRN 03/21/20 03/21/20 History Past Med/Surg History Social History Preferred Language: Mandarin [place]zeri Communication Ability: Effective Communication Tools: IPad Smash Fixer Required: Yes Beliefs That Will Affect Care: None marital status: Current Living Situation: Family Feels Safe at Home: Yes Smoking Status: Never smoker Tobacco Type: cigarettes ; Second Hand Exposure: Yes ; Hx Alcohol Use: Yes Alcohol type: beer Hx Substance Use: Yes substance use type: does not use Last Used Substance: Just Prior to Arrival Review of Systems Review of Systems: Patient has no distress or fatigue no headache, blurry or double vision no speech or swallowing issues no chest pain, pressure or palpitations no shortness of breath, cough or wheezes no abdominal pain, nausea or vomiting, diarrhea or constipation no dysuria, hematuria or frequency no focal joint pain or swelling no back pain, CVA tenderness or radicular pain no bruising, bleeding or rashes no focal signs of weakness or numbness or altered sensation no complaints or anxiety or depression. Physical Exam Physical Exam: The patient appeared well nourished and normally developed. Vital signs as documented. Head exam is normocephalic atraumatic no scleral icterus Neck is without JVD, thyromegaly, or carotid bruits. Lungs are clear to auscultation, no focal loss of breath sounds Cardiac exam, Rhythm is regular.. No murmurs, rubs or gallops. Abdominal exam reveals normal bowel sounds, soft non tender, no masses Extremities are nonedematous and both pedal pulses are normal. Neurologic exam is alert and oriented, no focal loss of strength or sensation Skin is without bruises or rashes Psychologically is without concerns for anxiety or depression Results & Data Results & Data ([facility]) Vital Signs (Past 12 Hours) Vital Signs Temp Pulse Resp BP Pulse Ox 03/25/20 16:55 99.3 F 56 L 18 140/82 98 EKG in the emergency department is sinus rhythm with bradycardia Code Status & VTE Plan VTE Prophylaxis Plan VTE Prophylaxis will be ordered: Yes PG Care Time/CCT Total # of Minutes Spent Total Time Spent with Patient: Total time spent is greater than 50% in coordination of care (as documented) at patient's floor/unit and/or counseling patient: Coding Level of Care Code 83733 Initial Inpt Care Lvl 2 Diagnoses Positive cardiac stress test R94.39 DMII (diabetes mellitus, type 2) E11.9 Diabetes mellitus complication status: without complication Diabetes mellitus fci insulin use: unspecified fci insulin use status (1) DMII (diabetes mellitus, type 2) Diabetes mellitus complication status: without complication Diabetes mellitus fci insulin use: unspecified fci insulin use status Qualified Code(s): E11.9 - Type 2 diabetes mellitus without complications
[2020-03-25 18:02] LABS: Albumin Level 3.9 gm/dl (3.4-5.0); BUN Creatinine Ratio 18.5 (10-20); Calcium 9.3 mg/dl (8.5-10.1); Creatinine Clr Calc Pharmacy 86.2 ml/min; Est GFR (African American) 102.9; Est GFR (Non-African American) 88.8; Potassium 4.1 mmol/L (3.5-5.1)
[2020-03-25 18:30] LABS: Albumin Globulin Ratio 0.9 (0.9-2); Bilirubin,Total 0.6 mg/dl (0.2-1); Globulin 4.3 gm/dl (2.5-4.0); Total Protein 8.2 gm/dl (6.4-8.2); Troponin I 0.092 ng/ml (0-0.045)
--- NOTE | 2020-03-25 18:36 | XRay Report ---
XR chest 1V portable HISTORY: Atypical Chest Pain COMPARISON: Chest 03/21/2020. FINDINGS: The lungs are clear. Cardiac silhouette is normal in size. No pleural effusions. No pneumot horax. IMPRESSION: No acute process. ACT 112: Negative or not required by law. Electronically signed by: Hayden Marcum M.D. 03/25/2020 6:35 PM
[2020-03-25] MEDS ORDERED: CARBOHYDRATES FOR HYPOGLYCEMIA PO PRN (20:06)
[2020-03-25] MEDS ORDERED: MoRPHine SULFATE 2 MG/ML CARP IV PRN (20:06)
[2020-03-25] MEDS ORDERED: ALUMINUM/MAGNESIUM SUSP 30 ML UDC PO PRN (20:06)
[2020-03-25] MEDS ORDERED: POLYETHYLENE (MIRALAX) 17 GM PACK PO PRN (20:06)
[2020-03-25] MEDS ORDERED: ONDANSETRON INJ 2 MG/ML 2 ML VIAL IV PRN (20:06)
[2020-03-25] MEDS ORDERED: ACETAMINOPHEN 325 MG TAB PO PRN (20:06)
[2020-03-25] MEDS ORDERED: DEXTROSE 50% 50 ML SYRINGE IV PRN (20:06)
[2020-03-25] MEDS ORDERED: GLUCAGON FOR INJ 1 MG VIAL SQ PRN (20:06)
[2020-03-25] MEDS ORDERED: NITROGLYCERIN SL 0.4 MG/TAB TAB SL PRN (20:06)
[2020-03-25] MEDS ORDERED: GLUCOSE 40% GEL 15 GM TUBE PO PRN (20:06)
[2020-03-25] MEDS ORDERED: GLUCOSE 10 TABS/TUBE PO PRN (20:06)
[2020-03-25] MEDS ORDERED: HEPARIN SODIUM/DEXTROSE 25,000 UNITS/500 ML BAG IV SCH (20:06)
[2020-03-25] MEDS ORDERED: SODIUM CHLORIDE 0.9% 1000ML 1,000 ML IV SCH (20:06)
[2020-03-25] MEDS: INSULIN ASPART 100 UNITS/ML 3 ML PEN SC SCH (20:52)
[2020-03-25] MEDS: NITROGLYCERIN 2% OINTMENT 30GM TUBE EXT SCH (20:53)
[2020-03-25] MEDS ORDERED: HEPARIN IV BOLUS 6,000 UNITS in SYRINGE 0 ML IV ONE (21:00)
[2020-03-26 03:34] LABS: Hematocrit (blood only) 39.2 % (42-52); Hemoglobin 13.5 g/dL (14.0-18.0); Mean Corpuscular Hemoglobin 31.8 pg (25-34); Mean Corpuscular Hgb Conc 34.4 g/dL (32-36); Mean Corpuscular Volume 92.5 fL (80-100); Mean Platelet Volume 10.8 fL (7.4-10.4); Platelet Count 188 K/uL (130-400); Red Blood Count 4.24 M/uL (4.7-6.1); White Blood Count 8.43 K/uL (4.8-10.8)
[2020-03-26 03:50] LABS: BUN Creatinine Ratio 18.7 (10-20); Calcium 8.5 mg/dl (8.5-10.1); Creatinine Clr Calc Pharmacy 94.1 ml/min; Est GFR (African American) 108.8; Est GFR (Non-African American) 93.8; Potassium 3.7 mmol/L (3.5-5.1)
[2020-03-26] MEDS: NITROGLYCERIN 2% OINTMENT 30GM TUBE EXT SCH ×2 (03:53→11:45)
[2020-03-26 03:55] LABS: Troponin I 0.034 ng/ml (0-0.045)
[2020-03-26 04:05] LABS: Partial Thromboplastin Ratio 3.3
[2020-03-26 04:14] LABS: Partial Thromboplastin Time 91.4 Seconds (21.0-31.0)
[2020-03-26] MEDS: INSULIN ASPART 100 UNITS/ML 3 ML PEN SC SCH ×4 (06:59→21:13)
[2020-03-26] MEDS ORDERED: NiCARDipine HCL INJ 2.5 MG/ML 10 ML AMP ONE ×2 (07:19→11:30)
[2020-03-26] MEDS ORDERED: MIDAZOLAM HCL 1 MG/ML 2ML VIAL ONE ×2 (07:19→11:31)
[2020-03-26] MEDS ORDERED: HEPARIN (PORCINE) 1000 UNIT/ML 10 ML (CATH LAB USE ONLY) ONE ×3 (07:19→12:30)
[2020-03-26] MEDS ORDERED: fentaNYL citrate 100 MCG/2 ML VIAL ONE ×2 (07:19→11:31)
[2020-03-26] MEDS ORDERED: NITROGLYCERIN/D5W 100MCG/ML 20ML SYR ONE ×2 (07:20→11:32)
--- NOTE | 2020-03-26 07:21 | Pre Anesthesia Assessment ---
Date of Service March 26, 2020 Pre Sedation Assessment Vital Signs Temp Pulse Pulse Resp BP BP BP 03/26/20 03:44 98.2 F 47 L 18 114/72 03/25/20 23:06 97.9 F 49 L 18 119/72 03/25/20 19:50 98.6 F 53 L 18 142/81 H 03/25/20 19:25 49 L 19 145/78 H 03/25/20 18:47 54 L 20 145/78 H 03/25/20 16:55 99.3 F 56 L 18 140/82 Pulse Ox 03/26/20 03:44 97 03/25/20 23:06 96 03/25/20 19:50 99 03/25/20 19:25 97 03/25/20 18:47 97 03/25/20 16:55 98 Cardiovascular RRR, no murmur, no edema Respiratory normal respiratory effort, lungs clear to auscultation Pre-Sedation Airway Assessment Smoking Status: Former smoker Hx Sleep Apnea: No Hx Difficult Intubation: No Short, Thick Neck: No Thyromental Distance: > or= 3.5 Finger Breadths Oral Cavity: + WNL Mallampati Class: III ASA: ASA3 Procedure Planning Contraindications for Sedation: none Current Medications Reviewed: Yes Notes The planned sedation has been discussed with the patient. Informed Consent was obtained. I have identified the patient, determined the appropriateness of sedation and have assessed the patient immediately prior to the procedure. All medicine(s) and interventions are by my order.
--- NOTE | 2020-03-26 07:30 | Cardiology Consultation ---
Date of Consultation March 26, 2020 Assessment & Plan (1) Non-ST elevation DE (NSTEMI): Patient with high risk ACS presentation and plan to proceed with invasive evaluation with cardiac catheterization via right radial artery. Discussed procedure including risks, benefits via service unit operator oil well with patient and he is willing to proceed. Also discussed with his daughter by phone. Further recommendations pending findings of catheterization. History of Present Illness Attending Physician: Seven Ruiz MD History of Present Illness Mr. Rose is a 64-year-old man with a history of diet-controlled type 2 diabetes here with suspected acute coronary syndrome and recent high risk stress test. Patient is visiting from [place] and speaks only Mandarin. He initially developed chest pain 5 days ago while walking and was admitted to [facility] for observation during which EKG, troponins were negative. Over the next several days had repeated episodes of chest pain including one episode at rest. Was seen by Dr. Altamirano with cardiology yesterday and underwent exercise stress echo. Developed chest pain after 2 minutes of walking and had significant greater than [address] depressions in leads II, III, aVF and V4 through V6. Chest pain persisted 7 minutes into recovery despite 4 sublingual nitro. He was sent to ED where EKG showed sinus bradycardia. Troponin minimally elevated at 0.092 and has trended down. Nitro patch placed, given aspirin and started on IV heparin. Has been chest pain-free overnight. Allergies Allergy/AdvReac Type Severity Reaction Status Date / Time No Known Allergies Allergy Verified 03/25/20 18:20 Home Medications Home Medications Medication Instructions Recorded Confirmed Type Adult Multivitamin Gummies 200 mcg PO DAILY 03/21/20 03/25/20 History ibuprofen [Advil] 200 mg PO HS PRN 03/21/20 03/25/20 History aspirin 325 mg PO ONCE 03/25/20 03/25/20 History Patient History Social History Preferred Language: Mandarin Belarusian Communication Ability: Language Communication Tools: IPad and Other Supervisor Wood Room Required: Yes Beliefs That Will Affect Care: None marital status: Current Living Situation: Family Feels Safe at Home: Yes Smoking Status: Former smoker Tobacco Type: cigarettes ; Second Hand Exposure: Yes ; Hx Alcohol Use: No Hx Substance Use: No Review of Systems Review of Systems: All systems reviewed & are unremarkable except as noted in HPI & below Physical Exam Physical Exam: General: Comfortable, no acute distress HEENT: Sclerae anicteric, mucous membranes moist Lungs: Clear to auscultation bilaterally, no rhonchi or wheezes Cardiac: Regular rate and rhythm, no murmurs. No JVD. Abdomen: Soft, nontender, nondistended, positive bowel sounds. Extremities: Warm, well perfused, no edema. 2+ radial pulses Skin: No rashes or lesions. Neuro: Nonfocal Psych: Alert orient x3, normal affect and mood Results & Data ([facility]) Vital Signs (Past 12 Hours) Vital Signs Temp Pulse Pulse Resp BP BP BP 03/26/20 03:44 98.2 F 47 L 18 114/72 03/25/20 23:06 97.9 F 49 L 18 119/72 03/25/20 19:50 98.6 F 53 L 18 142/81 H 03/25/20 19:25 49 L 19 145/78 H Pulse Ox 03/26/20 03:44 97 03/25/20 23:06 96 03/25/20 19:50 99 03/25/20 19:25 97 PG Care Time/CCT Total # of Minutes Spent Total Time Spent with Patient: Total time spent is greater than 50% in coordination of care (as documented) at patient's floor/unit and/or counseling patient: Coding Level of Care Code 64712 Inpt Consult Level 3 Diagnoses Non-ST elevation DE (NSTEMI) I21.4
--- NOTE | 2020-03-26 08:41 | Post Anesthesia Assessment ---
Date of Service March 26, 2020 Post Sedation Assessment Vital Signs Temp Pulse Pulse Resp BP BP BP 03/26/20 08:30 54 L 54 L 18 127/81 03/26/20 08:15 49 L 50 L 18 121/77 03/26/20 08:00 98.2 F 52 L 52 L 18 120/72 03/26/20 03:44 98.2 F 47 L 18 114/72 03/25/20 23:06 97.9 F 49 L 18 119/72 03/25/20 19:50 98.6 F 53 L 18 142/81 H 03/25/20 19:25 49 L 19 145/78 H 03/25/20 18:47 54 L 20 145/78 H 03/25/20 16:55 99.3 F 56 L 18 140/82 Pulse Ox 03/26/20 08:30 95 03/26/20 08:15 95 03/26/20 08:00 97 03/26/20 03:44 97 03/25/20 23:06 96 03/25/20 19:50 99 03/25/20 19:25 97 03/25/20 18:47 97 03/25/20 16:55 98 Recovery Score Activity: Moves 4 extremities Respiration: Deep Breath/Cough Circulation: +/-20% PreAnes Value Consciousness: Fully Awake Oxygen Saturation: > 92% On Room Air Post Anesthesia Score: 10 Discharge Sedation Level of Care: Fast Track Phase II Post Sedation Plan On clinical assessment, the patient appears to have tolerated the sedation without complications. Patient is recovering as anticipated. Patient will continue to be monitored by nursing and may be discharged when sedation discharge criteria are met per below protocol. Upon Completions of procedure up to 15 minutes continue every 5 minute vital signs and the P.A.R. score; then discharge to a Phase I or Fast Track to Phase II per the following guidelines: * Discharge Patient to appropriate Phase II area if PAR is 8 or greater or return to pre- procedure baseline. The post - procedure orders will be as directed. * If PAR score is less than 8 or not return to pre-procedure baseline then patient will follow Phase I monitoring till PAR is reached for Phase II. The Phase I may be done in procedure room or may call to secure a Phase I area. * If naloxone or flumazenil are used for reversal, hold in Phase I for continued monitoring from when last reversal dose was given for a minimum of 60 minutes or longer pending the nurse and/or physician discretion of patient condition before discharge to Phase II. Please call the Sedation Physician to re-evaluate and complete post-note for discharge to Phase II area. Do NOT discharge from procedure sedation or Phase 1 until post- sedation evaluation note is complete by procedure /sedation MD Sedation Discharge Instructions to be given to the patient at discharge to home.
[2020-03-26] MEDS ORDERED: ASPIRIN 325 MG ECTAB PO SCH (09:00)
[2020-03-26] MEDS ORDERED: TICAGRELOR 90 MG TAB PO ONE (11:27)
[2020-03-26] MEDS ORDERED: NOREPINEPHRINE BITARTRATE 1 MG/ML 4 ML VIAL (CATH LAB USE ONLY) ONE (11:30)
--- NOTE | 2020-03-26 11:37 | Cardiac Catheterization ---
[facility] Data: It Solutions Sales Consultant Cardiac Status Clinical evaluation leading to the procedure CAD Presenation: Non STEMI Anginal Classification: CCS IV Heart Failure: No Cardiogenic Shock within 24 Hours: No Cardiac Arrest within 24 Hours: No Imaging Studies Past 6 Months: Yes Stress Studies Past 6 Months: Yes Stress Echocardiogram: Yes - Positive and Risk/Extent of Ischemia (High) Diagnostic Physicians Name: Josue Castrejon MD Status: Elective Closure Device Percutaneous Entry Location: Radial Closure Device: Radial Band Recommendations: CABG Intraprocedure Events Significant Disection: No Perforation: No Cardiac Cath Procedure Full Procedure Date March 26, 2020 Pre-Procedure Diagnosis Pre-Procedure Diagnosis: Non STEMI AUC Score AUC Score: 8 Post-Procedure Diagnosis Post-Procedure Diagnosis: Severe CAD and Normal Intracardiac Pressures Procedure(s) Performed Procedure(s) Performed: Coronary Angiography and Left Heart Cath Engraver Lettering Josue Castrejon MD Pyroglazer(s) Mary Estimated Blood Loss Estimated Blood Loss: 10 Medication(s) Medication(s): Fentanyl, Heparin, Lidocaine 1%, Nicardipine, Nitroglycerin and Versed Summary of Findings Indication: Acute coronary syndrome, high risk stress test Access: 6 Fr slender right radial artery Catheters: [place] Findings: LM -80 to 90% ostial to distal stenosis LAD -large caliber vessel, distal vessel wraps around apex. Angiographically normal. Large first diagonal without significant disease Circumflex -large caliber vessel which gives off large OM 2. Angiographically normal RCA -large caliber, dominant, no significant disease LVEDP -9 Arterial Closure: TR band Summary: 1. Severe left main coronary artery disease (80 to 90% ostial to distal stenosis). 2. Normal intracardiac filling pressure Recommendations: Referral to cardiac surgery for CABG recommended. Long discussion with patient and daughter regarding findings. They are adamant that do not want to undergo cardiac surgery in [facility]. With chest pain at rest, elevated troponin post high risk stress feel patient would be at significant risk for discharge and travel back to [place] on optimal medical management alone. Left main stenosis does not appear calcified and appears to spare the bifurcation. He has no other significant LAD, circumflex, RCA disease and has normal LV function. Feel he is relatively low risk for left main stenting and after extensive discussion regarding risks, benefits of procedure family wishes to proceed with this option. Plan to perform later today. Hemodynamics Rest Ao:: 96/62/80 Final Ao: 124/65/89 LV: 127/9 Recommendations Recommendations: CABG Specimens Specimens: None Radiation Exposure (mGy) 538 Contrast (mls) 45 Fluids (cc crystalloids) Fluids (cc crystalloids): 30 Drains Drains: none Anesthesia moderate Procedural Complication(s) None Disposition [employer] Sales Consultant Holding/Recovery I attest to the content of the Intraoperative Record and any orders documented therein. Any exceptions are noted below. [facility] Card Cath Procedure Codes Cardiac Catheterization Procedure 1: Cardiovascular Cath Procedures: 36285 Coronaries and LHC (+/-LV) Moderate Sedation Procedure 1: Sedation/Anesthesia: 53624 Mod Sedation by the same physician;Init15 Min Child Age 5 & Up PG Care Time/CCT Total # of Minutes Spent Total Time Spent with Patient: Total time spent is greater than 50% in coordination of care (as documented) at patient's floor/unit and/or counseling patient:
[2020-03-26] MEDS ORDERED: ATROPINE SULFATE 0.1 MG/ML 10ML SYR IV ONE (11:48)
--- NOTE | 2020-03-26 13:36 | Post Anesthesia Assessment ---
Date of Service March 26, 2020 Post Sedation Assessment Vital Signs Temp Pulse Pulse Resp BP BP BP 03/26/20 13:15 45 L 45 L 18 161/88 H 03/26/20 11:00 54 L 50 L 18 125/79 03/26/20 10:45 54 L 52 L 18 117/75 03/26/20 10:30 54 L 50 L 18 141/86 H 03/26/20 10:15 54 L 52 L 18 134/86 03/26/20 10:00 54 L 50 L 18 141/93 H 03/26/20 09:45 54 L 50 L 18 141/83 H 03/26/20 09:30 54 L 52 L 18 134/80 03/26/20 09:15 54 L 59 L 18 149/85 H 03/26/20 09:00 54 L 54 L 18 136/89 03/26/20 08:45 54 L 52 L 18 112/69 03/26/20 08:30 54 L 54 L 18 127/81 03/26/20 08:15 49 L 50 L 18 121/77 03/26/20 08:00 98.2 F 52 L 52 L 18 120/72 03/26/20 03:44 98.2 F 47 L 18 114/72 03/25/20 23:06 97.9 F 49 L 18 119/72 03/25/20 19:50 98.6 F 53 L 18 142/81 H 03/25/20 19:25 49 L 19 145/78 H 03/25/20 18:47 54 L 20 145/78 H 03/25/20 16:55 99.3 F 56 L 18 140/82 Pulse Ox 03/26/20 13:15 97 03/26/20 11:00 97 03/26/20 10:45 97 03/26/20 10:30 97 03/26/20 10:15 97 03/26/20 10:00 98 03/26/20 09:45 98 03/26/20 09:30 98 03/26/20 09:15 96 03/26/20 09:00 96 03/26/20 08:45 95 03/26/20 08:30 95 03/26/20 08:15 95 03/26/20 08:00 97 03/26/20 03:44 97 03/25/20 23:06 96 03/25/20 19:50 99 03/25/20 19:25 97 03/25/20 18:47 97 03/25/20 16:55 98 Recovery Score Activity: Moves 4 extremities Respiration: Deep Breath/Cough Circulation: +/-20% PreAnes Value Consciousness: Fully Awake Oxygen Saturation: > 92% On Room Air Post Anesthesia Score: 10 Discharge Sedation Level of Care: Fast Track Phase II Post Sedation Plan On clinical assessment, the patient appears to have tolerated the sedation without complications. Patient is recovering as anticipated. Patient will continue to be monitored by nursing and may be discharged when sedation discharge criteria are met per below protocol. Upon Completions of procedure up to 15 minutes continue every 5 minute vital signs and the P.A.R. score; then discharge to a Phase I or Fast Track to Phase II per the following guidelines: * Discharge Patient to appropriate Phase II area if PAR is 8 or greater or return to pre- procedure baseline. The post - procedure orders will be as directed. * If PAR score is less than 8 or not return to pre-procedure baseline then patient will follow Phase I monitoring till PAR is reached for Phase II. The Phase I may be done in procedure room or may call to secure a Phase I area. * If naloxone or flumazenil are used for reversal, hold in Phase I for continued monitoring from when last reversal dose was given for a minimum of 60 minutes or longer pending the nurse and/or physician discretion of patient condition before discharge to Phase II. Please call the Sedation Physician to re-evaluate and complete post-note for discharge to Phase II area. Do NOT discharge from procedure sedation or Phase 1 until post- sedation evaluation note is complete by procedure /sedation MD Sedation Discharge Instructions to be given to the patient at discharge to home.
--- NOTE | 2020-03-26 13:47 | Cardiac Catheterization ---
[facility] Data: Photoengraving Apprentice Cardiac Status Clinical evaluation leading to the procedure CAD Presenation: Non STEMI Anginal Classification: CCS IV Heart Failure: No Cardiogenic Shock within 24 Hours: No Cardiac Arrest within 24 Hours: No Imaging Studies Past 6 Months: Yes Stress Studies Past 6 Months: Yes Stress Echocardiogram: Yes - Positive and Risk/Extent of Ischemia (High) Diagnostic Physicians Name: Josue Castrejon MD Closure Device Percutaneous Entry Location: Radial Closure Device: Radial Band Recommendations: PCI without planned CABG Lesion Segment Name: Left main Culprit Artery: Yes Stenosis Prior to Rx (%): 90 IVUS: Yes FFR: No Pre-Procedure ZACH Flow: 3 Previously Treated Lesion: No Lesion Complexity: High/C Lesion Length (mm): 12 Thrombus Present: Yes Bifurcation Lesion: Yes Guidewire Across Lesion: Stenosis Post-Procedure (%): 0 Post-Procedure ZACH Flow: 3 Devices(s) Deployed: Yes Yes Intraprocedure Events Significant Disection: No Perforation: No Cardiac Cath Procedure Full Procedure Date March 26, 2020 Pre-Procedure Diagnosis Pre-Procedure Diagnosis: Non STEMI AUC Score AUC Score: 8 Post-Procedure Diagnosis Post-Procedure Diagnosis: Successful PCI Procedure(s) Performed Procedure(s) Performed: Drug Eluting Stent and IVUS Supervisor Coin Machine Josue Castrejon MD Surveyor Mine(s) Alberto Estimated Blood Loss Estimated Blood Loss: 10 Medication(s) Medication(s): Fentanyl, Heparin, Lidocaine 1%, Nicardipine, Nitroglycerin and Versed Medication(s): ticagrelor Summary of Findings Access: 6 Fr right radial artery Catheters: JL 3.5 guide Findings: For full details of patient's coronary angiography please see cath report from earlier today. Briefly, patient found to have an 80 to 90% ostial to distal left main stenosis without other significant CAD. After extensive discussions with patient and family CABG was declined and after discussion of risk, benefits decision to proceed with left main stenting. -- PCI -- Antithrombotic therapy: Heparin, ticagrelor Procedure: Left main cannulated with JL 3.5 guide Carriage Dogger 50 wire passed across lesion into distal LAD Pro-water wire placed into distal circumflex Left main lesion predilated with 2.5 compliant balloon IVUS revealed noncalcified, circumferential plaque extending from ostium to just prior to bifurcation. Minimal disease at LAD, circumflex ostiums. Left main stented with 4.0 x 18 mm Xience Corina drug-eluting stent extending from ostium across bifurcation into LAD Circumflex rewired with barge pilot 50 wire Repeat IVUS confirmed well apposed stent from LAD back to ostium with stent struts ending just into aorta. Stent post-dilated proximally with 5.0 noncompliant balloon Stent struts into circumflex dilated with 2.5 balloon Post procedure ZACH 3 flow, stent well expanded with minimal residual stenosis in left main and circumflex ostium. No apparent cardiac complications Arterial Closure: TR band Summary: 1. Successful PCI of ostial left main into LAD with single drug-eluting stent (4.0 x 18 mm Xience Corina; postdilated with 5.0 NC) --Angioplasty to ostium of circumflex through stent struts with 2.5 balloon Recommendations: To PCU for continued monitoring Loaded with ticagrelor 180 mg prior to procedure Continue dual-antiplatelet therapy for at least 1 year, likely indefinitely Continue statin, and ASCVD risk factor modification Hemodynamics Rest Ao:: 135/77/98 Final Ao: 165/77/110 LV: -- Recommendations Recommendations: PCI without planned CABG Specimens Specimens: None Radiation Exposure (mGy) 2861 Contrast (mls) 110 Fluids (cc crystalloids) Fluids (cc crystalloids): 80 Drains Drains: none Anesthesia moderate Procedural Complication(s) None Disposition PCU I attest to the content of the Intraoperative Record and any orders documented therein. Any exceptions are noted below. [facility] Card Cath Procedure Codes Therapeutic Services & Ancillary Proc Procedure 1: Cardiovascular Tx and Anc Procedures: 69195 IV Ultrasound (Coronary or Graft) Moderate Sedation Procedure 1: Sedation/Anesthesia: 00679 Mod Sedation by the same physician;Init15 Min Child Age 5 & Up Stenting Procedure 1: Cardiovascular Stent Procedures: 63084 Perc transcatheter placement of intracoronary stent(s), with ang PG Care Time/CCT Total # of Minutes Spent Total Time Spent with Patient: Total time spent is greater than 50% in coordination of care (as documented) at patient's floor/unit and/or counseling patient:
[2020-03-26] MEDS ORDERED: SODIUM CHLORIDE 0.9% 1000ML 1,000 ML IV SCH (14:00)
--- NOTE | 2020-03-26 14:33 | Electrocardiogram Report ---
Test Reason : Blood Pressure : / mmHG Vent. Rate : 049 BPM Atrial Rate : 049 BPM P-R Int : 168 ms QRS Dur : 110 ms QT Int : 464 ms P-R-T Axes : 055 -10 019 degrees QTc Int : 419 ms Sinus bradycardia Otherwise normal ECG When compared with ECG of 22-MAR-2020 12:33, No significant change was found Confirmed by Ruiz Koo ([id number]) on 03/26/2020 2:32:48 PM Referred By: REFERRED SELF Confirmed By:Ruiz Koo
--- NOTE | 2020-03-26 19:32 | Hospitalist Progress Note ---
Date of Service March 26, 2020 Assessment & Plan (1) Non-ST elevation CA (NSTEMI): Minimal NSTEMI 2nd to left main disease. Peak troponin 0.092. Echo done during outpatient stress test on day of admission with preserved EF. Remains on DAPT. High-intensity statin begun. Patient with bradycardia at rest - may not tolerate even low-dose BB. Defer beta sandi initiation to cardiology. (2) Left main coronary artery disease: s/p heart cath today by Dr Castrejon. This revealed severe left main disease (80-90% stenosis). CABG recommended; patient/daughter declined, stating they would want surgery in [place]. Difficulties of returning to [place] and high risk of recurrent NSTEMI/morbidity discussed with patient/daughter. Following this discussion decision made to intervene with stenting TODAY. Successful angioplasty with stent to the left main by Dr Castrejon. Resting comfortably post-cath. Heparin d/c. Brilinta started today but [id number] cost to patient will be >$350/month. Generic plavix ~$10/month. Will load with plavix in am (300mg). Then 75mg daily thereafter on 03/28. D/c brilinta after tonight's dose. Appreciate Dr Castrejon' assistance. (3) DMII (diabetes mellitus, type 2): diet-controlled. a1c 6.4%. (4) DVT prophylaxis: if patient stays beyond tomorrow start lovenox daily updated pt's daughter by phone on 03/26/20 possible d/c home w/ daughter tomorrow Admission and Anticipated Discharge Date Admission Date: March 25, 2020 Subjective all information obtained from patient via [employer]er through diplomatic interpreter service. patient was seen post-cath on tele unit. denied chest pain, abd pain, nausea, dyspnea. felt good. patient reports he has been in [place] for 6 months - staying with daughter. was here - but now back in [place] ([facility]). patient would like to return to [place] in a few months but getting airplane ticket to back home is very difficult. no family h/o CAD. Review of Systems Constitutional: no fatigue and no anorexia Respiratory: no cough and no dyspnea Cardiovascular: no chest pain Gastrointestinal: no abdominal pain, no nausea and no vomiting Physical Exam Constitutional: well developed and well nourished; no acute distress ENMT: external ear and nose normal, oropharynx normal Respiratory: normal respiratory effort, lungs clear to auscultation Cardiovascular: Rate/Rhythm: regular rate and regular rhythm Heart Sounds: normal S1 and normal S2; no murmur Vessels: posterior tibial pulses present and dorsalis pedis pulses present; no JVD Extremities: no edema Gastrointestinal (Abdomen): normal bowel sounds, soft, nontender, no hepatosplenomegaly Skin: no hematoma of right wrist Psychiatric: Orientation: alert and oriented x 3 Results & Data Results & Data ([facility]) Vital Signs (Past 12 Hours) Vital Signs Temp Pulse Pulse Resp BP BP Pulse Ox 03/26/20 17:30 60 18 147/82 H 95 03/26/20 17:18 63 18 132/79 94 03/26/20 16:45 59 L 03/26/20 16:31 64 18 159/96 H 96 03/26/20 16:15 56 L 18 156/90 H 96 03/26/20 15:32 60 18 134/83 96 03/26/20 14:17 60 153/90 H 03/26/20 14:02 36.3 C L 57 L 48 L 18 150/91 H 98 03/26/20 13:15 45 L 45 L 18 161/88 H 97 03/26/20 11:00 54 L 50 L 18 125/79 97 03/26/20 10:45 54 L 52 L 18 117/75 97 03/26/20 10:30 54 L 50 L 18 141/86 H 97 03/26/20 10:15 54 L 52 L 18 134/86 97 03/26/20 10:00 54 L 50 L 18 141/93 H 98 03/26/20 09:45 54 L 50 L 18 141/83 H 98 03/26/20 09:30 54 L 52 L 18 134/80 98 03/26/20 09:15 54 L 59 L 18 149/85 H 96 03/26/20 09:00 54 L 54 L 18 136/89 96 03/26/20 08:45 54 L 52 L 18 112/69 95 03/26/20 08:30 54 L 54 L 18 127/81 95 03/26/20 08:15 49 L 50 L 18 121/77 95 03/26/20 08:00 36.8 C 52 L 52 L 18 120/72 97 Laboratory Results Laboratory Results - last 24 hr 03/25/20 03/26/20 03/26/20 22:55 03:18 03:18 WBC 8.43 RBC 4.24 L Hgb 13.5 L Hct 39.2 L MCV 92.5 MCH 31.8 MCHC 34.4 RDW Std Deviation 44.0 RDW Coeff of Casie 13.0 Plt Count 188 MPV 10.8 H APTT 91.4 H* PTT Ratio 3.3 Activ Coag Time Kaolin Sodium Potassium Chloride Carbon Dioxide Anion Gap BUN Creatinine Est Cr Clr Drug Dosing Est GFR ( Amer) Est GFR (Non-Af Amer) BUN/Creatinine Ratio Glucose POC Glucose Calcium Troponin I 0.053 H* 03/26/20 03/26/20 03/26/20 03:18 06:47 12:27 WBC RBC Hgb Hct MCV MCH MCHC RDW Std Deviation RDW Coeff of Casie Plt Count MPV APTT PTT Ratio Activ Coag Time Kaolin 235 H Sodium 142 Potassium 3.7 Chloride 112 H Carbon Dioxide 27 Anion Gap 3.0 BUN 16 Creatinine 0.84 Est Cr Clr Drug Dosing 94.1 Est GFR ( Amer) 108.8 Est GFR (Non-Af Amer) 93.8 BUN/Creatinine Ratio 18.7 Glucose 92 POC Glucose 99 Calcium 8.5 Troponin I 0.034 03/26/20 03/26/20 03/26/20 12:44 14:22 16:19 WBC RBC Hgb Hct MCV MCH MCHC RDW Std Deviation RDW Coeff of Casie Plt Count MPV APTT PTT Ratio Activ Coag Time Kaolin 279 H Sodium Potassium Chloride Carbon Dioxide Anion Gap BUN Creatinine Est Cr Clr Drug Dosing Est GFR ( Amer) Est GFR (Non-Af Amer) BUN/Creatinine Ratio Glucose POC Glucose 126 H 139 H Calcium Troponin I 03/26/20 20:53 WBC RBC Hgb Hct MCV MCH MCHC RDW Std Deviation RDW Coeff of Casie Plt Count MPV APTT PTT Ratio Activ Coag Time Kaolin Sodium Potassium Chloride Carbon Dioxide Anion Gap BUN Creatinine Est Cr Clr Drug Dosing Est GFR ( Amer) Est GFR (Non-Af Amer) BUN/Creatinine Ratio Glucose POC Glucose 102 H Calcium Troponin I PG Care Time/CCT Total # of Minutes Spent Total Time Spent with Patient: Total time spent is greater than 50% in coordination of care (as documented) at patient's floor/unit and/or counseling patient: Coding Level of Care Code 01625 Subseq Hosp Care Lvl 1 Diagnoses Non-ST elevation CA (NSTEMI) I21.4 Left main coronary artery disease I25.10 DMII (diabetes mellitus, type 2) E11.9 Diabetes mellitus complication status: without complication Diabetes mellitus veterinarian insulin use: unspecified veterinarian insulin use status DVT prophylaxis Z29.9 (1) DMII (diabetes mellitus, type 2) Diabetes mellitus complication status: without complication Diabetes mellitus veterinarian insulin use: unspecified custodial insulin use status Qualified Code(s): E11.9 - Type 2 diabetes mellitus without complications
[2020-03-26] MEDS ORDERED: TICAGRELOR 90 MG TAB PO SCH (23:00)
[2020-03-27 06:29] LABS: Hemoglobin 14.3 g/dL (14.0-18.0); Platelet Count 199 K/uL (130-400); RDW Coefficient of Variation 12.9 % (11.5-14.5); RDW Standard Deviation 44.4 fL (36.4-46.3); Red Blood Count 4.47 M/uL (4.7-6.1); White Blood Count 8.35 K/uL (4.8-10.8)
[2020-03-27 07:04] LABS: BUN Creatinine Ratio 14.9 (10-20); Calcium 8.6 mg/dl (8.5-10.1); Creatinine Clr Calc Pharmacy 80.7 ml/min; Est GFR (African American) 95.4; Est GFR (Non-African American) 82.3; Potassium 3.7 mmol/L (3.5-5.1)
--- NOTE | 2020-03-27 08:08 | Electrocardiogram Report ---
Test Reason : Blood Pressure : / mmHG Vent. Rate : 055 BPM Atrial Rate : 055 BPM P-R Int : 178 ms QRS Dur : 104 ms QT Int : 444 ms P-R-T Axes : 049 -13 060 degrees QTc Int : 424 ms Sinus bradycardia Otherwise normal ECG When compared with ECG of 25-MAR-2020 17:03, No significant change was found Confirmed by Ruiz Koo ([id number]) on 03/27/2020 8:08:34 AM Referred By: REFERRED SELF Confirmed By:Ruiz Koo
--- NOTE | 2020-03-27 08:31 | Electrocardiogram Report ---
Test Reason : Blood Pressure : / mmHG Vent. Rate : 045 BPM Atrial Rate : 045 BPM P-R Int : 188 ms QRS Dur : 110 ms QT Int : 476 ms P-R-T Axes : 063 047 074 degrees QTc Int : 411 ms Sinus bradycardia Otherwise normal ECG When compared with ECG of 26-MAR-2020 16:16, No significant change Confirmed by Ruiz Koo ([id number]) on 03/27/2020 8:31:09 AM Referred By: REFERRED SELF Confirmed By:Ruiz Koo
[2020-03-27] MEDS: INSULIN ASPART 100 UNITS/ML 3 ML PEN SC SCH ×2 (08:52→11:59)
[2020-03-27] MEDS ORDERED: CLOPIDOGREL BISULFATE 300 MG TAB PO SCH (09:00)
[2020-03-27] MEDS ORDERED: ASPIRIN 81 MG ECTAB PO SCH (09:00)
[2020-03-27] MEDS ORDERED: ATORVASTATIN 40 MG TAB PO SCH (09:00)
--- NOTE | 2020-03-27 11:05 | Cardiology Progress Note ---
Date of Service March 27, 2020 Assessment & Plan (1) Left main coronary artery disease: Post procedure day 1 after PCI to left main stenosis. Doing well today with no additional chest pain. Remains hemodynamically and electrically stable. No apparent access site complications. Post procedure labs stable. From a cardiac standpoint okay with discharge today. Home on aspirin, clopidogrel indefinitely. Also started on new statin. Will hold off on beta-sandi in the setting of sinus bradycardia. Follow-up with Dr. Altamirano in 2 weeks Admission and Anticipated Discharge Date Admission Date: March 25, 2020 Subjective History obtained via squaring machine operator iPad. Patient feeling well today. Denies any chest pain. Denies significant pain at rest or any numbness/tingling in his fingers. Telemetry reviewedsinus bradycardia, no other events Review of Systems Review of Systems: All systems reviewed & are unremarkable except as noted in HPI & below Physical Exam Physical Exam: General: Comfortable, no acute distress HEENT: Sclerae anicteric, mucous membranes moist Lungs: Clear to auscultation bilaterally, no rhonchi or wheezes Cardiac: Bradycardic, regular Abdomen: Soft, nontender, nondistended, positive bowel sounds. Extremities: Warm, well perfused, no edema. Right radial artery access site with no ecchymosis, hematoma. Distal pulse and sensation intact. Skin: No rashes or lesions. Neuro: Nonfocal Psych: Alert orient x3, normal affect and mood Results & Data ([facility]) Vital Signs (Past 12 Hours) Vital Signs Temp Pulse Pulse Resp BP BP Pulse Ox 03/27/20 08:00 52 L 03/27/20 07:15 98.2 F 48 L 17 114/72 93 03/27/20 04:40 98.2 F 48 L 18 129/73 97 03/27/20 00:08 98.1 F 51 L 18 158/88 H 97 PG Care Time/CCT Total # of Minutes Spent Total Time Spent with Patient: Total time spent is greater than 50% in coordination of care (as documented) at patient's floor/unit and/or counseling patient: Coding Level of Care Code 42358 Subseq Hosp Care Lvl 3 Diagnoses Left main coronary artery disease I25.10
--- NOTE | 2020-03-27 11:12 | Discharge Summary ---
Date of Service March 27, 2020 Admission HPI Per Admitting Provider 64-year-old male who was recently discharged from our facility March 22 after a period of chest pain he ruled out for PA was sent for outpatient stress test which he attempted to complete today, 03/25/2020. Patient developed chest pain during the testing and there was some concern for unstable angina he was sent to the ER for admission for possible left heart catheterization in the morning of 03/26/2020. I did speak personally to Dr. Castrejon soaker who recommends heparin drip overnight aspirin therapy and oxygen. The patient is not recommended to be loaded with Plavix at this time. At the time of this dictation the patient's without any chest discomfort resting comfortably with stable vital signs CBC is normal he is pending chemistries and a troponin test at this time. Principal Diagnosis Pt states via scientific illustrator service that he is feeling much improved. No return of chest pain or SOB. Pt denies fever, abd pain, n/v/c/d, LE pain or swelling. He has tolerated PO, but has had a low appetite overall. Discharge Exam Constitutional WD/WN, vitals as above Eyes normal visual mott by confrontation and + anicteric sclerae Neck normal visual inspection and trachea midline Respiratory normal respiratory effort, lungs clear to auscultation Cardiovascular Rate/Rhythm: regular rate and regular rhythm Gastrointestinal (Abdomen) Inspection/Auscultation: abdomen not distended Percussion/Palpation: abdomen soft; abdomen nontender Musculoskeletal Head/Neck/Chest: normocephalic and head atraumatic Skin no rashes, warm and dry Neurologic awake; not confused Speech / Cognition: normal speech Psychiatric A+Ox3, euthymic affect Discharge Data Allergies Allergy/AdvReac Type Severity Reaction Status Date / Time No Known Allergies Allergy Verified 03/25/20 18:20 Consultations 03/25/20 17:22 ED Decision to Admit Stat 03/25/20 20:06 Consult Cardiology Routine 03/27/20 11:07 Consult Health Information Management Routine Procedures Performed Operation Date: 03/26/20 07:00 Actual Procedures p Cath, Left with Cors and Vent - Sherif Castrejon MD s Cineradiography w/Routine Exam - Sherif Castrejon MD Operation Date: 03/26/20 12:00 Actual Procedures p Drug Eluting Stent SGl Vessel - Sherif Castrejon MD s IVUS Coronary Single Vessel - Sherif Castrejon MD s Cineradiography w/Routine Exam - MD arturo Miranda Aspiration/PCI w/ADDISON for Stemi - Sherif Castrejon MD Ordered Studies 03/26/20 11:45 CL Cath Imgs for PACS use only Routine 03/26/20 13:20 CL IVUS Coronary Single Vessel Routine Hospital Course (1) Non-ST elevation PA (NSTEMI): Minimal NSTEMI 2nd to left main disease. Peak troponin 0.092. Echo done during outpatient stress test on day of admission with preserved EF. Remains on DAPT. High-intensity statin begun. Patient with bradycardia at rest - may not tolerate even low-dose BB. Defer beta sandi initiation to cardiology. EKG on 03/27 was significant only for sinus bradycardia (2) Left main coronary artery disease: s/p heart cath today by Dr Castrejon. This revealed severe left main disease (80-90% stenosis). CABG recommended; patient/daughter declined, stating they would want surgery in [place]. Difficulties of returning to [place] and high risk of recurrent NSTEMI/morbidity discussed with patient/daughter. Following this discussion decision made to intervene with stenting on 03/26 Successful angioplasty with stent to the left main by Dr Castrejon. Resting comfortably post-cath. Heparin d/c. Brilinta started today but [id number] cost to patient will be >$350/month. Generic plavix ~$10/month. Will load with plavix in am (300mg). Then 75mg daily thereafter on 03/28. D/c brilinta after tonight's dose. (3) DMII (diabetes mellitus, type 2): diet-controlled. a1c 6.4%. (4) DVT prophylaxis: Total Time Total Time Spent Total Time Spent (In Minutes): >30 Total Time Includes: Examination of the Patient, Discharge Planning, Medication Reconciliation, Communication With Other Providers and Other Discharge Plan Discharge Items Patient Disposition: Home - Self-Care Reason For Visit: UNSTABLE ANGINA Discharge Diagnosis: NSTEMI Activity: Resume your previous activity Non-emergency contact: Primary Care Provider and Ict Business Development Manager Call non-emergency contact if: you have any medication questions, your symptoms worsen and your pain is not controlled Follow-up/Referrals: PCP,NO [Primary Care Provider] - Diet: Heart Healthy Addtl Attending Provider Instructions: You had a heart attack prior to admission. It was recommended that you have surgery for this and you should be seen by a rn paralegal in [place] as soon as possible. You should take all of your documentation with you when you do follow up so that they are aware of the interventions that occurred during your admission to [facility]. Pending Studies at Discharge: No Stand-Alone Forms: [facility], Smoking Cessation Medications and DC Order Prescriptions: New atorvastatin 40 mg Tablet 80 mg PO QAM Qty: 30 RF: 0 clopidogrel 75 mg Tablet 75 mg PO DAILY Qty: 30 RF: 0 aspirin 81 mg Tablet,Delayed Release (Dr/Ec) 81 mg PO QAM Qty: 30 RF: 0 Continued Adult Multivitamin Gummies 200 mcg Tablet,Chewable 200 mcg PO DAILY RF: 0 Discontinued ibuprofen [Advil] 200 mg Tablet 200 mg PO HS PRN (Reason: Sleep) RF: 0 aspirin 325 mg Tablet 325 mg PO ONCE RF: 0 Discharge Orders: Discharge Order (Routine); Ordered 03/27/20 Ordered By: Tracee Elias Admission Data Admit Date/Time: 03/25/20 17:49 Attending Provider: Tracee Elias Admit Provider: Seven Ruiz Primary Care Provider: PCP,NO Other Providers: Seven Ruiz ; Sherif Castrejon Coding Level of Care Code D/C Day Management >30 mins Diagnoses Non-ST elevation PA (NSTEMI) I21.4 Left main coronary artery disease I25.10 DMII (diabetes mellitus, type 2) E11.9 Diabetes mellitus complication status: without complication Diabetes mellitus intermediate project manager insulin use: unspecified halfway insulin use status DVT prophylaxis Z29.9
[2020-03-28] MEDS ORDERED: CLOPIDOGREL BISULFATE 75 MG TAB PO SCH (09:00)
== END 2020-03-27 14:37 | disposition home or self-care (01) | DRG 247 ==
LOC: ED 16:48 → SUATTDRO 17:49 → 2S 17:49